=== PATIENT | female | born 1995 | race Hispanic/Latino ===

== ENCOUNTER 2023-12-01 11:39 | Emergency (ER) | payer SELFPAY ==
[~2023-12-01] VITALS: Ht 157.5 cm; Wt 71.0 kg
[2023-12-01 14:11] VITALS: BP 136/79
[2023-12-01 14:15] VITALS: BP 145/93
[2023-12-01] MEDS ORDERED: ONDANSETRON4 MG PO (14:22)
[2023-12-01 14:30] VITALS: BP 129/88
[2023-12-01 14:52] VITALS: BP 129/88
== END 2023-12-01 14:53 | disposition home or self-care (01) | DRG 179 ==
LOC: ED 11:39
DX: U07.1 COVID-19 (principal); R11.0 Nausea; R52 Pain, unspecified; R05.9 Cough, unspecified; R50.9 Fever, unspecified; J02.9 Acute pharyngitis, unspecified; E78.5 Hyperlipidemia, unspecified